=== PATIENT | female | born 1985 | race African-American/Black ===

== ENCOUNTER 2017-10-14 13:41 | Emergency (ER) | payer OTHER ==
[2017-10-14] MEDS: SOD CHLORIDE 0.9% 1,000 ML IV (16:56)
[2017-10-14] MEDS: DIPHENHYDRAMINE 50 MG INJ IV (16:56)
[2017-10-14] MEDS: METHYLPREDNISOLONE 125 MG INJ IV (16:56)
[2017-10-14] MEDS: FAMOTIDINE 20 MG INJ IV (16:56)
== END 2017-10-14 19:08 | disposition home or self-care (01) ==
LOC: FTE 13:41
DX: H57.8 Other specified disorders of eye and adnexa (principal)
CPT/HCPCS: 96374; 96375; 99284-25

== ENCOUNTER 2018-07-14 15:55 | Emergency (ER) | payer OTHER ==
[2018-07-14] MEDS: ALBUTEROL 0.5% (NEB) 2.5 MG/0.5 ML AMP INH (16:22)
[2018-07-14 16:36] LABS: ADD MAN DIFF? NO
[2018-07-14] MEDS: DEXAMETHASONE 10 MG/ML 1 ML INJ IV (16:37)
[2018-07-14] MEDS: SOD CHLORIDE 0.9% 1,000 ML IV (16:37)
[2018-07-14 16:39] LABS: BASOPHILS % 0.2 % (0.0-2.0); EOSINOPHILS # 0.5 10^3/ul (0.0-0.5); EOSINOPHILS % 4.1 % (0.0-7.0); HEMATOCRIT 37.5 % (37.0-47.0); HEMOGLOBIN 12.9 g/dl (12.0-16.0); LYMPHOCYTES # 2.1 10^3/ul (0.8-2.9); LYMPHOCYTES % 17.8 % (15.0-51.0); MEAN CORPUSCULAR HEMOGLOBIN 33.4 pg (29.0-33.0); MEAN CORPUSCULAR HGB CONC 34.4 g/dl (32.0-37.0); MEAN CORPUSCULAR VOLUME 97.2 fl (82.0-101.0); MEAN PLATELET VOLUME 9.8 fl (7.4-10.4); MONOCYTE # 0.8 10^3/ul (0.3-0.9); MONOCYTES % 6.3 % (0.0-11.0); NEUTROPHIL # 8.6 10^3/ul (1.6-7.5); NEUTROPHILS % 71.3 % (39.0-77.0); PLATELET COUNT 249 10^3/UL (140-415); RED BLOOD COUNT 3.86 10^6/ul (4.20-5.40); RED CELL DISTRIBUTION WIDTH 11.6 % (11.5-14.5)
[2018-07-14 17:01] LABS: ANION GAP 13 (5-13); BLOOD UREA NITROGEN 5 mg/dl (7-20); CALCIUM 10.1 mg/dl (8.4-10.2); CARBON DIOXIDE 19 mmol/L (21-31); CHLORIDE 109 mmol/L (97-110); CREATININE 0.51 mg/dl (0.44-1.00); Estimated GFR > 60 mL/min (>60); GLUCOSE 100 mg/dl (70-220); POTASSIUM 3.7 mmol/L (3.5-5.1); SODIUM 141 mmol/L (135-144)
[2018-07-14 17:13] LABS: TROPONIN-I < 0.012 ng/ml (0.000-0.120)
[2018-07-14] MEDS ORDERED: IPRATROPIUM (NEB) 0.5 MG/2.5 ML AMP NEB (17:44)
[2018-07-14] MEDS ORDERED: ALBUTEROL 0.083% (NEB) 2.5 MG/3 ML AMP NEB (17:44)
[2018-07-14] MEDS ORDERED: AZITHROMYCIN 250 MG TAB PO (18:00)
== END 2018-07-14 18:00 | disposition home or self-care (01) ==
LOC: E/R 15:55
DX: J45.901 Unspecified asthma with (acute) exacerbation (principal); J22 Unspecified acute lower respiratory infection; F17.210 Nicotine dependence, cigarettes, uncomplicated
CPT/HCPCS: 71045; 80048; 84484; 85025; 87400; 93005; 94644; 96374; 99285-25